=== PATIENT | female | born 1930 | race Caucasian/White ===

== ENCOUNTER → 2016-09-08 | Outpatient (CLI) | payer BC ==
[~2016-09-08] MED LIST: BIOTPOW17; CHOL100010 PO; CYAN10005 PO; DRV100 PO; ESTER C; FLV400 PO; IBUP600T44 PO; METO50TA16 PO; MGN PO; MULT-506 PO; OMEG10007 PO; PYRI100T4 PO; VITA400C15 PO; VITAMIN B COMPLEX
[2016-09-08 08:38] LABS: BLOOD UREA NITROGEN 26 mg/dl (7-18); CALCIUM 8.6 mg/dl (8.5-10.1); CARBON DIOXIDE 31 mmol/L (21-32); CHLORIDE 104 mmol/L (98-107); CHOLESTEROL 179 mg/dl (0-200); GLUCOSE 97 mg/dl (70-99); POTASSIUM 4.6 mmol/L (3.5-5.1); SODIUM 141 mmol/L (136-145); TRIGLYCERIDES 257 mg/dl (0-150); VERY LOW DENSITY LIPOPROT CALC 51 mg/dl
[2016-09-08 08:42] LABS: CHOLESTEROL/HDL RATIO 5.3; HDL CHOLESTEROL 34 mg/dl; LDL CHOLESTEROL CALCULATED 94 mg/dl
== END | disposition home or self-care (01) ==
LOC: C.LABFOXMH 07:45
PROVIDERS: ATTEND Internal Medicine
DX: I10 Essential (primary) hypertension (principal)

== ENCOUNTER → 2017-03-05 | Outpatient (CLI) | payer BC ==
[2017-03-05 08:30] LABS: BLOOD UREA NITROGEN 21 mg/dl (7-18); BUN/CREATININE RATIO 17.8 (10-20); CALCIUM 8.9 mg/dl (8.5-10.1); CARBON DIOXIDE 28 mmol/L (21-32); CHLORIDE 106 mmol/L (98-107); GLUCOSE 103 mg/dl (70-99); POTASSIUM 4.5 mmol/L (3.5-5.1); SODIUM 142 mmol/L (136-145)
== END | disposition home or self-care (01) ==
LOC: C.LABFOXMH 07:45
PROVIDERS: ATTEND Internal Medicine
DX: I10 Essential (primary) hypertension (principal)

== ENCOUNTER → 2017-05-18 | Outpatient (CLI) | payer BC ==
[2017-05-18 09:41] LABS: BLOOD UREA NITROGEN 25 mg/dl (7-18); BUN/CREATININE RATIO 25.4 (10-20); CARBON DIOXIDE 30 mmol/L (21-32); CHLORIDE 107 mmol/L (98-107); CREATININE 0.98 mg/dl (0.60-1.20); GLUCOSE 94 mg/dl (70-99); POTASSIUM 4.6 mmol/L (3.5-5.1); SODIUM 139 mmol/L (136-145)
== END ==
LOC: C.LABFOXMH 08:54
PROVIDERS: ATTEND Internal Medicine
DX: I10 Essential (primary) hypertension (principal)

== ENCOUNTER → 2017-06-04 | Outpatient (CLI) | payer BC ==
[2017-06-04 09:04] LABS: BLOOD UREA NITROGEN 20 mg/dl (7-18); CALCIUM 8.7 mg/dl (8.5-10.1); CARBON DIOXIDE 31 mmol/L (21-32); CHLORIDE 104 mmol/L (98-107); GLUCOSE 95 mg/dl (70-99); POTASSIUM 4.7 mmol/L (3.5-5.1); SODIUM 138 mmol/L (136-145)
== END | disposition home or self-care (01) ==
LOC: C.LABFOXMH 08:34
PROVIDERS: ATTEND Internal Medicine
DX: I10 Essential (primary) hypertension (principal); M81.0 Age-related osteoporosis without current pathological fracture

== ENCOUNTER → 2017-06-29 | Outpatient (CLI) | payer BC | END | disposition home or self-care (01) | LOC: C.MAMM 12:36 | PROVIDERS: ATTEND Internal Medicine | DX: N95.8 Other specified menopausal and perimenopausal disorders (principal) ==

== ENCOUNTER → 2017-07-10 | Outpatient (CLI) | payer BC ==
[2017-07-10 12:03] LABS: INFLUENZA B ANTIGEN Neg for Influ B (NEG)
== END | disposition home or self-care (01) ==
LOC: C.LABFOXMH 11:27
PROVIDERS: ATTEND Nurse Practitioner Family
DX: R05 Cough (principal)

== ENCOUNTER 2019-05-24 21:54 | Inpatient (IN) ==
[2019-05-24] MEDS ORDERED: SODIUM CHLORIDE 0.9% 1000ML 500 ML IV ONE (22:02)
[2019-05-24] MEDS ORDERED: dilTIAZem HCl 5 MG/ML 5 ML VIAL IV STA (22:06)
[2019-05-24 22:17] LABS: Basophils # (auto) 0.02 K/uL (0-0.2); Basophils % (auto) 0.2 %; Eosinophils # (auto) 0.13 K/uL (0-0.5); Eosinophils % (auto) 1.6 %; Hematocrit (blood only) 42.8 % (37-47); Hemoglobin 14.1 g/dL (12.0-16.0); Immature Granulocytes # (auto) 0.01 K/uL (0.00-0.02); Immature Granulocytes % (auto) 0.1 %; Lymphocytes # (auto) 2.44 K/uL (1.2-3.4); Lymphocytes % (auto) 30.2 %; Mean Corpuscular Hemoglobin 30.3 pg (25-34); Mean Corpuscular Hgb Conc 32.9 g/dL (32-36); Mean Corpuscular Volume 91.8 fL (80-100); Mean Platelet Volume 10.3 fL (7.4-10.4); Monocytes # (auto) 0.81 K/uL (0.11-0.59); Neutrophils # (auto) 4.68 K/uL (1.4-6.5); Neutrophils % (auto) 57.9 %; Platelet Count 200 K/uL (130-400); RDW Coefficient of Variation 13.7 % (11.5-14.5); RDW Standard Deviation 46.1 fL (36.4-46.3); Red Blood Count 4.66 M/uL (4.2-5.4); White Blood Count 8.09 K/uL (4.8-10.8)
--- NOTE | 2019-05-24 22:22 | XRay Report ---
XR chest 1V portable CLINICAL HISTORY: weakness COMPARISON STUDY: Chest radiograph July 02, 2018. FINDINGS: Lung volumes are normal. Minimal left basilar opacity favors atelectasis. There is no pneum othorax or pleural effusion. Borderline cardiomegaly is noted. Mediastinal contours are normal. There is no evidence for pulmonary edema. A calcified left lung granuloma is noted. Suspected calcified le ft hilar node is noted. Lumbar spine fusion hardware is partially imaged. IMPRESSION: No acute cardiopulmonary findings. Electronically signed by: Ronni Holder M.D. 05/24/2019 10:21 PM
--- NOTE | 2019-05-24 22:31 | Emergency Department Note ---
Entered by Emma Hernandez acting as a scribe for Tushar Benavidez DO History of Present Illness General Chief complaint: Arrhythmia/Palpitations Stated complaint: PALPITATIONS, DIZZINESS Time Seen by Provider: 05/24/19 21:54 History of Present Illness Provider complaint: palpitations Onset (ago): hour(s) 3 Pain Consistency: + other (episode) Quality: + other (palpitations) Relieved By: + medication (15 mg Cardizem) Associated symptoms: + denies other symptoms (swelling in legs, recent travel), + shortness of breath (3 times) and + other (palpitations started after eating dinner); no chest pain and no nausea/vomiting Treatments prior to arrival: other (15 mg Cardizem) The patient is an 89 year old male who presents to the ED with complaints of an episode of palpitations that started 3 hours ago. The patient states that this feeling started after she finished dinner at [facility]. The patient states that as she was walking home with these symptoms, she became short of breath 3 times. The patient states that she is feeling better after receiving 15 mg of Cardizem en route. The patient denies swelling in her legs, chest pain, nausea, vomiting and recent travel. Home Medications Home Medications Medication Instructions Recorded Confirmed Type aspirin [Aspir-Low] 81 mg PO DAILY 05/24/19 05/24/19 History biotin 0 mg PO DAILY 05/24/19 05/24/19 History cholecalciferol (vitamin D3) 1,000 unit PO TID 05/24/19 05/24/19 History [Vitamin D3] cyanocobalamin (vitamin B-12) 1,000 mcg PO DAILY 05/24/19 05/24/19 History [Vitamin B-12] folic acid 400 mcg PO DAILY 05/24/19 05/24/19 History magnesium 250 mg PO DAILY 05/24/19 05/24/19 History omega 2-gwh-ojr-fish oil [Fish Oil] 1 cap PO DAILY 05/24/19 05/24/19 History vitamin B complex 1 tab PO DAILY 05/24/19 05/24/19 History vitamin E 400 unit PO DAILY 05/24/19 05/24/19 History Allergies Allergy/AdvReac Type Severity Reaction Status Date / Time Penicillins Allergy Mild Unknown Verified 05/24/19 22:57 Past Med/Surg History Medical History (Updated 05/24/19 @ 23:40 by Emma Hernandez) Hypertension No significant medical problems (Inactive) Social History Preferred Language: Malawian Feels Safe at Home: Yes Smoking Status: Former smoker Review of Systems See HPI for pertinent positives & negatives. and A total of 10 systems reviewed and were otherwise negative Physical Exam Vital Signs Vital Signs - 24 hr 05/24/19 22:11 05/24/19 22:15 05/24/19 22:20 Temperature 36.8 C Temperature Source Oral Pulse Rate 108 H 117 H 92 H Pulse Rate from SpO2 Sensor 111 H 97 H Respiratory Rate 18 18 18 Blood Pressure 161/79 H 141/77 H 132/75 Blood Pressure Mean 106 99 85 Pulse Oximetry 94 94 90 Oxygen Delivery Method Room Air Sepsis Recent Fever Within 48 Hours No Sepsis New/Unexplained Change in Mental Status No Sepsis Action Taken by Nursing No Action Required Pulse Oximetry Post Tiitration 94 05/24/19 22:25 05/24/19 22:30 05/24/19 22:35 Temperature Temperature Source Pulse Rate 90 88 96 H Pulse Rate from SpO2 Sensor 95 H 89 86 Respiratory Rate 20 18 18 Blood Pressure 118/77 119/67 120/77 Blood Pressure Mean 101 90 90 Pulse Oximetry 91 93 90 Oxygen Delivery Method Sepsis Recent Fever Within 48 Hours Sepsis New/Unexplained Change in Mental Status Sepsis Action Taken by Nursing Pulse Oximetry Post Tiitration 05/24/19 22:41 05/24/19 23:00 Temperature Temperature Source Pulse Rate 84 98 H Pulse Rate from SpO2 Sensor 92 H 114 H Respiratory Rate 18 18 Blood Pressure 121/76 114/98 Blood Pressure Mean 91 102 Pulse Oximetry 93 94 Oxygen Delivery Method Sepsis Recent Fever Within 48 Hours Sepsis New/Unexplained Change in Mental Status Sepsis Action Taken by Nursing Pulse Oximetry Post Tiitration GENERAL: Patient is awake alert in no acute distress patient is resting comfortably and showing no signs of anxiety EYES: The conjunctivae are clear. The pupils are round and reactive. EARS, NOSE, MOUTH AND THROAT: The nose is without any evidence of any deformity. Mucous membranes are moist. Tongue is midline. NECK: The neck is nontender and supple. RESPIRATORY: Normal respiratory effort is noted there is no evidence of wheezing rhonchi or rales CARDIOVASCULAR: Irregular rhythm was noted to auscultation. There is no definite murmur. GASTROINTESTINAL: The abdomen is soft. Abdomen is nontender. MUSCULOSKELETAL/EXTREMITIES: There is no evidence of gross deformity full range of motion is noted in the hips and shoulders. SKIN: There is no obvious evidence of any rash. Trace pedal edema was noted bilaterally. NEUROLOGIC: Patient is awake alert and oriented x3. Course Course 2157: Past medical records reviewed. The patient was evaluated in room C04. A complete history and physical exam was performed. 2257: I discussed the patient's case with Dr. Lopez [facility] Hospitalist. She will evaluate the patient for further management. 2301: I updated the patient and her son on the plan for admission. They verbally agree and understand. Consultations Consultation #1: I discussed the patient's case with Dr. Lopez [facility] Hospitalist. She will evaluate the patient for further management. Time: 22:58 Administered Medications Discontinued Medications Diltiazem HCl (Cardizem) 10 mg IV NOW STA Stop: 05/24/19 22:07 Last Admin: 05/24/19 22:13 Dose: 10 mg Documented by: [id number] Cosigned by: [id number] Sodium Chloride (Nss 1000ml) 500 mls @ 999 mls/hr IV .Q31M ONE Stop: 05/24/19 22:32 Last Admin: 05/24/19 22:09 Dose: 500 mls/hr Documented by: [id number] Medical Decision Making Differential Diagnosis Differential diagnosis: Etiologies such as infections, reactive airway disease, COPD, pneumonia, pleural effusion, pulmonary edema, ARDS, pneumothorax, CHF, cardiac ischemia, cardiac tamponade, dysrhythmia, anemia, pulmonary embolism, musculoskeletal, gastrointestinal process, as well as others were entertained. Medical Records Attestation: I reviewed the patient's medical records. Home Medications Current Medication List: was personally reviewed by me Laboratory Data Attestation: I reviewed the patient's lab results. Result diagrams: 05/24/19 22:09 05/24/19 22:09 Lab Results 05/24/19 05/24/19 05/24/19 Range/Units 22:09 22:09 22:09 WBC 8.09 (4.8-10.8) K/uL RBC 4.66 (4.2-5.4) M/uL Hgb 14.1 (12.0-16.0) g/dL Hct 42.8 (37-47) % MCV 91.8 (80-100) fL MCH 30.3 (25-34) pg MCHC 32.9 (32-36) g/dL RDW Std Deviation 46.1 (36.4-46.3) fL RDW Coeff of Yousuf 13.7 (11.5-14.5) % Plt Count 200 (130-400) K/uL MPV 10.3 (7.4-10.4) fL Immature Gran % (Auto) 0.1 % Neut % (Auto) 57.9 % Lymph % (Auto) 30.2 % Burt % (Auto) 10.0 % Eos % (Auto) 1.6 % Baso % (Auto) 0.2 % Immature Gran # (Auto) 0.01 (0.00-0.02) K/uL Neut # (Auto) 4.68 (1.4-6.5) K/uL Lymph # (Auto) 2.44 (1.2-3.4) K/uL Burt # (Auto) 0.81 H (0.11-0.59) K/uL Eos # (Auto) 0.13 (0-0.5) K/uL Baso # (Auto) 0.02 (0-0.2) K/uL PT 10.8 (9.0-12.0) Seconds INR 1.1 (0.9-1.1) APTT 23.0 (21.0-31.0) Seconds PTT Ratio 0.8 Sodium 140 (136-145) mmol/L Potassium 4.3 (3.5-5.1) mmol/L Chloride 108 H (98-107) mmol/L Carbon Dioxide 27 (21-32) mmol/L Anion Gap 5.0 (3-11) BUN 21 H (7-18) mg/dl Creatinine 1.14 (0.6-1.2) mg/dl Est Cr Clr Drug Dosing 28.8 ml/min Est GFR ( Amer) 49.7 Est GFR (Non-Af Amer) 42.9 BUN/Creatinine Ratio 18.4 (10-20) Glucose 124 H (70-99) mg/dl Calcium 8.9 (8.5-10.1) mg/dl Magnesium 2.1 (1.8-2.4) mg/dl Total Bilirubin 0.3 (0.2-1) mg/dl AST 17 (15-37) U/L ALT 17 (12-78) U/L Alkaline Phosphatase 57 (45-117) U/L Troponin I < 0.015 (0-0.045) ng/ml Total Protein 7.9 (6.4-8.2) gm/dl Albumin 3.6 (3.4-5.0) gm/dl Globulin 4.3 H (2.5-4.0) gm/dl Albumin/Globulin Ratio 0.8 L (0.9-2) TSH 1.250 (0.300-4.500) uIu/ml Urine Color Urine Appearance (Clear) Urine pH (4.5-7.5) Ur Specific [place] (1.000-1.030) Urine Protein (Negative) Urine Glucose (UA) (Negative) Urine Ketones (Negative) Urine Blood (Negative) Urine Nitrite (Negative) Urine Bilirubin (Negative) Urine Urobilinogen (Negative) Ur Leukocyte Esterase (Negative) Urine WBC (Auto) (0-5) /hpf Urine RBC (Auto) (0-4) /hpf U Hyaline Cast (Auto) (0-5) /lpf U Epithel Cells (Auto) (0-5) /lpf Urine Bacteria (Auto) (Negative) 05/24/19 Range/Units 22:30 WBC (4.8-10.8) K/uL RBC (4.2-5.4) M/uL Hgb (12.0-16.0) g/dL Hct (37-47) % MCV (80-100) fL MCH (25-34) pg MCHC (32-36) g/dL RDW Std Deviation (36.4-46.3) fL RDW Coeff of Yousuf (11.5-14.5) % Plt Count (130-400) K/uL MPV (7.4-10.4) fL Immature Gran % (Auto) % Neut % (Auto) % Lymph % (Auto) % Burt % (Auto) % Eos % (Auto) % Baso % (Auto) % Immature Gran # (Auto) (0.00-0.02) K/uL Neut # (Auto) (1.4-6.5) K/uL Lymph # (Auto) (1.2-3.4) K/uL Burt # (Auto) (0.11-0.59) K/uL Eos # (Auto) (0-0.5) K/uL Baso # (Auto) (0-0.2) K/uL PT (9.0-12.0) Seconds INR (0.9-1.1) APTT (21.0-31.0) Seconds PTT Ratio Sodium (136-145) mmol/L Potassium (3.5-5.1) mmol/L Chloride (98-107) mmol/L Carbon Dioxide (21-32) mmol/L Anion Gap (3-11) BUN (7-18) mg/dl Creatinine (0.6-1.2) mg/dl Est Cr Clr Drug Dosing ml/min Est GFR ( Amer) Est GFR (Non-Af Amer) BUN/Creatinine Ratio (10-20) Glucose (70-99) mg/dl Calcium (8.5-10.1) mg/dl Magnesium (1.8-2.4) mg/dl Total Bilirubin (0.2-1) mg/dl AST (15-37) U/L ALT (12-78) U/L Alkaline Phosphatase (45-117) U/L Troponin I (0-0.045) ng/ml Total Protein (6.4-8.2) gm/dl Albumin (3.4-5.0) gm/dl Globulin (2.5-4.0) gm/dl Albumin/Globulin Ratio (0.9-2) TSH (0.300-4.500) uIu/ml Urine Color Yellow Urine Appearance Clear (Clear) Urine pH 6.5 (4.5-7.5) Ur Specific [place] 1.008 (1.000-1.030) Urine Protein Negative (Negative) Urine Glucose (UA) Negative (Negative) Urine Ketones Negative (Negative) Urine Blood Negative (Negative) Urine Nitrite Negative (Negative) Urine Bilirubin Negative (Negative) Urine Urobilinogen Negative (Negative) Ur Leukocyte Esterase Trace H (Negative) Urine WBC (Auto) 1-5 (0-5) /hpf Urine RBC (Auto) 0-4 (0-4) /hpf U Hyaline Cast (Auto) 0 (0-5) /lpf U Epithel Cells (Auto) 0-5 (0-5) /lpf Urine Bacteria (Auto) Negative (Negative) Imaging Data Radiologist's Impression: Radiology results as stated below per my review and the radiologist's interpretation: XR chest 1V portable CLINICAL HISTORY: weakness COMPARISON STUDY: Chest radiograph July 02, 2018. FINDINGS: Lung volumes are normal. Minimal left basilar opacity favors atelectasis. There is no pneumothorax or pleural effusion. Borderline cardiomegaly is noted. Mediastinal contours are normal. There is no evidence for pulmonary edema. A calcified left lung granuloma is noted. Suspected calcified left hilar node is noted. Lumbar spine fusion hardware is partially imaged. IMPRESSION: No acute cardiopulmonary findings. Electronically signed by: Ronni Holder M.D. 05/24/2019 10:21 PM ECG Data Attestation: I personally reviewed and interpreted this ECG as follows: Indication: + chest pain Rate (beats per minute): 105 Rhythm: + atrial fibrillation (RVR) ECG Intervals/blocks: + Left bundle branch block (pattern noted) ECG Findings: no PVCs Comparison ECG Date: from (09/22/2008) Change: the following changes noted (Afib replaced sinus rhythm) Blood Pressure Blood Pressure Findings: Normal blood pressure Blood Pressure Disposition: did not require urgent referral MDM Narrative The patient is an 89-year-old female who presented to the emergency department for an evaluation of palpitations. The patient has a history of atrial fibrillation but this was approximately 10 years ago and currently the patient is not taking medications for rate control or blood thinners. The patient was treated with IV Cardizem prior to arrival. She was further treated with IV Cardizem in the emergency department. She was feeling much better on subsequent reevaluation but continues to be in atrial fibrillation. I discussed patient's laboratory and radiographic studies with her. I also discussed her case with [facility] on-call [facility] hospitalist. They have agreed to evaluate the patient in the emergency department for further management and disposition. I discussed patient's condition with her son, Alessandro. He is aware the patient's condition at this time. Impression & Plan Atrial fibrillation with RVR, Palpitations, Dyspnea on exertion Discharge Plan Visit Data Chief Complaint: Arrhythmia/Palpitations Stated Complaint: PALPITATIONS, DIZZINESS ED Provider: Tushar Benavidez Discharge Problem: Atrial fibrillation with RVR, Palpitations, Dyspnea on exertion Patient Disposition: Being Evaluated by Hospitalist Forms Stand Alone Forms: My [facility] Prescriptions Prescriptions: No Action aspirin [Aspir-Low] 81 mg Tablet,Delayed Release (Dr/Ec) 81 mg PO DAILY RF: 0 cyanocobalamin (vitamin B-12) [Vitamin B-12] 1,000 mcg Tablet 1,000 mcg PO DAILY RF: 0 folic acid 400 mcg Tablet 400 mcg PO DAILY RF: 0 magnesium 250 mg Tablet 250 mg PO DAILY RF: 0 cholecalciferol (vitamin D3) [Vitamin D3] 1,000 unit Tablet,Chewable 1,000 unit PO TID RF: 0 omega 8-qqn-xaw-fish oil [Fish Oil] 1,000 mg (120 mg-180 mg) Capsule 1 cap PO DAILY RF: 0 biotin 1 mg Capsule 0 mg PO DAILY RF: 0 vitamin B complex Tablet 1 tab PO DAILY RF: 0 vitamin E 400 unit Capsule 400 unit PO DAILY RF: 0 Referrals Referrals: Oskar Epperson [Primary Care Provider] - The scribe's documentation has been prepared under my direction and personally reviewed by me in its entirety. I confirm that the note above accurately reflects all work, treatment, procedures, and medical decision making performed by me.
[2019-05-24 22:33] LABS: INR 1.1 (0.9-1.1); Partial Thromboplastin Ratio 0.8; Prothrombin Time 10.8 Seconds (9.0-12.0)
[2019-05-24 22:57] LABS: Alanine Aminotransferase 17 U/L (12-78); Albumin Globulin Ratio 0.8 (0.9-2); Albumin Level 3.6 gm/dl (3.4-5.0); Alkaline Phosphatase 57 U/L (45-117); BUN Creatinine Ratio 18.4 (10-20); Bilirubin,Total 0.3 mg/dl (0.2-1); Blood Urea Nitrogen 21 mg/dl (7-18); Calcium 8.9 mg/dl (8.5-10.1); Carbon Dioxide 27 mmol/L (21-32); Chloride 108 mmol/L (98-107); Creatinine Clr Calc Pharmacy 28.8 ml/min; Est GFR (African American) 49.7; Est GFR (Non-African American) 42.9; Globulin 4.3 gm/dl (2.5-4.0); Glucose 124 mg/dl (70-99); Total Protein 7.9 gm/dl (6.4-8.2); Troponin I < 0.015 ng/ml (0-0.045)
[2019-05-24 23:05] LABS: Potassium 4.3 mmol/L (3.5-5.1); Sodium 140 mmol/L (136-145)
[2019-05-24 23:12] LABS: Aspartate Aminotransferase 17 U/L (15-37); Magnesium 2.1 mg/dl (1.8-2.4)
[2019-05-24 23:12] LABS: Appearance Urine Clear (Clear); Bacteria Urine Automated Negative (Negative); Bilirubin Urine Negative (Negative); Blood Urine Negative (Negative); Cast Urine Automated 0 /lpf (0-5); Color Urine Yellow; Epithelial Cell Urine Auto 0-5 /lpf (0-5); Glucose Urine UA Negative (Negative); Ketones Urine Negative (Negative); Leukocyte Esterase Urine Trace (Negative); Nitrite Urine Negative (Negative); Protein Urine Negative (Negative); RBC Urine Automated 0-4 /hpf (0-4); Specific Gravity Urine 1.008 (1.000-1.030); Urobilinogen Urine Negative (Negative); pH Urine 6.5 (4.5-7.5)
--- NOTE | 2019-05-25 00:03 | History & Physical Report ---
Date of Service May 25, 2019 Assessment & Plan (1) Atrial fibrillation with RVR: Ms. Coreas is a delightful 89-year-old female with a past medical history of atrial fibrillation and hypertension who presents to [facility] from [facility] due to feeling lightheaded, and short of breath earlier today. ED course: She received 10 mg of IV Cardizem en route to the hospital, and a further 10 mg of IV Cardizem in the ER. She also received a 500 mL normal saline bolus Atrial Fibrillation with RVR -Admit to telemetry -Patient with a remote history of atrial fibrillation, however is not on any rate or rhythm controlling agents or anticoagulation -Symptoms and rate improved in the ER after 10 mg IV doses of Cardizem x 2 -will start 12.5 mg of p.o. metoprolol tartrate twice daily given patient tolerated metoprolol well in the past. Can titrate up if necessary -Echo ordered -No clear trigger for atrial fibrillation - electrolytes optimized, potassium 4.3 and magnesium 2.1, no symptoms or signs of infection, patient euvolemic -Troponin negative x1 -Chadsvasc score of 3 without including hypertension (see below) - patient has a 3.2% risk of stroke per year -The risk of stroke with atrial fibrillation was discussed with the patient, however she stated she would rather not take blood thinners, but instead drink green tea which has blood thinning properties Hypertension -Patient reports a history of this, however does not appear to be on any medications for this at home Code status: FULL DVT Prophylaxis: SCDs, patient ambulatory Disposition: admit to telemetry (2) Palpitations: (3) Dyspnea on exertion: (4) Hypertension: History of Present Illness Chief Complaint: Lightheadedness, SOB Primary Care Provider: [facility] Ms. Coreas is a delightful 89-year-old female with a past medical history of atrial fibrillation and hypertension who presents to [facility] from [facility] due to feeling lightheaded, and short of breath earlier today. Ms. Coreas states that she was walking from her dining farmer to her [place], when she suddenly felt lightheaded. She states that she is normally able to walk this entire route without stopping, however today she had to stop 3 times to catch her breath. She also endorsed chest tightness. She checked her pulse and blood pressure at this time, and found her pulse to be 105 and systolic blood pressure to be 112. She states that she is usually above 140 systolic, but this was a change for her. She reports that she was in her usual state of health today, and in fact was learning how to play pool earlier today. 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 With regards to her prior history of atrial fibrillation, she states that she was on metoprolol for this. She was taken off her medication several years ago, and did not have any episodes of A. fib since then. She states that she has never been on blood thinners, and prefers not to be. Allergies Allergy/AdvReac Type Severity Reaction Status Date / Time Penicillins Allergy Mild Unknown Verified 05/24/19 22:57 Home Medications Home Medications Medication Instructions Recorded Confirmed Type aspirin [Aspir-Low] 81 mg PO DAILY 05/24/19 05/24/19 History biotin 0 mg PO DAILY 05/24/19 05/24/19 History cholecalciferol (vitamin D3) 1,000 unit PO TID 05/24/19 05/24/19 History [Vitamin D3] cyanocobalamin (vitamin B-12) 1,000 mcg PO DAILY 05/24/19 05/24/19 History [Vitamin B-12] folic acid 400 mcg PO DAILY 05/24/19 05/24/19 History magnesium 250 mg PO DAILY 05/24/19 05/24/19 History omega 5-gvj-pln-fish oil [Fish Oil] 1 cap PO DAILY 05/24/19 05/24/19 History vitamin B complex 1 tab PO DAILY 05/24/19 05/24/19 History vitamin E 400 unit PO DAILY 05/24/19 05/24/19 History Past Med/Surg History Medical History (Updated 05/24/19 @ 23:40 by Emma Hernandez) Hypertension No significant medical problems (Inactive) Social History Preferred Language: Lithuanian Feels Safe at Home: Yes Smoking Status: Former smoker Review of Systems Constitutional: no fever, no chills, no fatigue and no anorexia Respiratory: no cough, no dyspnea and no wheezing Cardiovascular: + chest pain (tightness) and + lightheadedness; no syncope, no edema and no calf pain Gastrointestinal: no abdominal pain, no nausea, no vomiting and no change in bowel habits Genitourinary: + urinary incontinence; no dysuria and no difficulty urinating Integumentary: no rash Physical Exam Constitutional: WD/WN, vitals as above + well hydrated; no acute distress Eyes: PERRL, conjunctivae normal, anicteric sclerae ENMT: external ear and nose normal, oropharynx normal Respiratory: normal respiratory effort, lungs clear to auscultation Cardiovascular: Rate/Rhythm: regular rate; + abnormal rhythm (irregularly irregular) Heart Sounds: no murmur Vessels: posterior tibial pulses present and dorsalis pedis pulses present Extremities: no calf tenderness and no pedal edema Gastrointestinal (Abdomen): normal bowel sounds, soft, nontender, no hepatosplenomegaly Musculoskeletal: no cyanosis or clubbing, extremities motor strength 5/5 Skin: no rashes, warm and dry Psychiatric: A+Ox3, euthymic affect Results & Data Vital Signs (Past 12 Hours) Vital Signs Temp Pulse Resp BP Pulse Ox 05/24/19 23:00 98 H 18 114/98 94 05/24/19 22:41 84 18 121/76 93 05/24/19 22:35 96 H 18 120/77 90 05/24/19 22:30 88 18 119/67 93 05/24/19 22:25 90 20 118/77 91 05/24/19 22:20 92 H 18 132/75 90 05/24/19 22:15 117 H 18 141/77 H 94 05/24/19 22:11 36.8 C 108 H 18 161/79 H 94 Code Status & VTE Plan VTE Prophylaxis Plan VTE Prophylaxis will be ordered: Yes Supervising Physician Co-Signing Physician Notes Patient seen and examined, chart reviewed, case discussed with Dr. Alberts and I agree with her assessment and plan as documented above. Briefly, patient is a buster 89yo C female with remote history of atrial fibrillation presenting in AF with RVR. Patient developed some mild chest tightness and DO earlier today, came to the ER and found to be in AF. Her rate responded nicely to Cardizem. Presently feels much improved. No complaints On exam she is afebrile, HD stabe [id number], irregularly irregular Lungs - CTA, no rales/rhonchi/wheezes Abd - +BS, soft, NT/ND Ext - no edema Labs and images reviewed Assessment/Plan: 89yo C female with AF -Admit with telemetry -Check echo -Metoprolol 12.5mg po BID -Patient should be considered for anticoagulation due to stroke risk (Age, gender, h/o HTN). She wishes to hold off on this for now and to try using green tea. She is aware of the risk of stroke -Remainder of plan as above Resident Activity Tracking Resident Involvement: Resident Care Provided Care Provided: Adult Hospital Medicine
[2019-05-25] MEDS ORDERED: POLYETHYLENE (MIRALAX) 17 GM PACK PO PRN (00:57)
[2019-05-25] MEDS ORDERED: ACETAMINOPHEN 325 MG TAB PO PRN (00:57)
--- NOTE | 2019-05-25 01:38 | Billing Data ---
Date of Service May 25, 2019 Coding Level of Care Code 42826 Initial Inpt Care Lvl 2
[2019-05-25] MEDS: METOPROLOL TARTRATE 25 MG TAB PO SCH ×2 (01:43→08:37)
[2019-05-25] MEDS ORDERED: ASPIRIN 81 MG ECTAB PO SCH (09:00)
--- NOTE | 2019-05-25 12:12 | Discharge Summary ---
Date of Service May 25, 2019 Admission HPI Per Admitting Provider Ms. Coreas is a delightful 89-year-old female with a past medical history of atrial fibrillation and hypertension who presents to [facility] from [facility] due to feeling lightheaded, and short of breath earlier today. Ms. Coreas states that she was walking from her dining [place] to her [place], when she suddenly felt lightheaded. She states that she is normally able to walk this entire route without stopping, however today she had to stop 3 times to catch her breath. She also endorsed chest tightness. She checked her pulse and blood pressure at this time, and found her pulse to be 105 and sy stolic blood pressure to be 112. She states that she is usually above 140 systolic, but this was a change for her. She reports that she was in her usual state of health today, and in fact was learning how to play pool earlier today. She denies a prior history of SC, CVA, and states she does not follow with a therapist radiation. With regards to her prior history of atrial fibrillation, she states that she was on metoprolol for this. She was taken off her medication several years ago, and did not have any episodes of A. fib since then. She states that she has never been on blood thinners, and prefers not to be. Admission Exam Per Admitting Provider Constitutional: WD/WN, vitals as above + well hydrated; no acute distress Eyes: PERRL, conjunctivae normal, anicteric sclerae ENMT: external ear and nose normal, oropharynx normal Respiratory: normal respiratory effort, lungs clear to auscultation Cardiovascular: Rate/Rhythm: regular rate; + abnormal rhythm (irregularly irregular) Heart Sounds: no murmur Vessels: posterior tibial pulses present and dorsalis pedis pulses present Extremities: no calf tenderness and no pedal edema Gastrointestinal (Abdomen): normal bowel sounds, soft, nontender, no hepatosplenomegaly Musculoskeletal: no cyanosis or clubbing, extremities motor strength 5/5 Skin: no rashes, warm and dry Psychiatric: A+Ox3, euthymic affect Principal Diagnosis Afib Discharge Exam General: A&Ox3. NAD. Cooperative. HEENT: Atraumatic, normocephalic. Pulm: CTAB A&P. -wheezes, -rales, -rhonchi. Symmetrical chest rise. No increase work of breathing. No respiratory distress. Cardiac: RRR, -mrg. Radial pulses intact and symmetrical. Abdominal: Nontender, nondistended, soft. BS present. Discharge Data Allergies Allergy/AdvReac Type Severity Reaction Status Date / Time Penicillins Allergy Mild Unknown Verified 05/24/19 22:57 Consultations 05/24/19 23:03 ED Decision to Admit Stat 05/25/19 00:57 Consult Case Management - Discharge Planning Routine Hospital Course (1) Atrial fibrillation with RVR: Dodie is an 89-year-old female with a distant history of atrial fibrillation previously on beta-rosie medication a decade ago who presented with an acute episode of shortness of breath and chest tightness. Atrial fibrillation Dodie was admitted from [facility] after she developed lightheadedness, shortness of breath, and a vague feeling of palpitations/chest tightness. On admission her normal blood pressure of approximately 140 systolic was reduced to 105, and she was tachycardic. EKG showed atrial fibrillation. She has a history of atrial fibrillation for which she was previously on metoprolol, but has not been on any beta-blockers or anticoagulation in over 10 years and has not had any problems with atrial fibrillation during that time. She responded well and her heart rate and blood pressure normalized with 210 mg doses of Cardizem. She started on metoprolol tartrate 12.5 mg twice daily with no recurrence of her symptoms, and was discharged to further titration to follow-up with her primary care provider. No clear trigger for her atrial fibrillation was identified, she had no electrolyte derangements and no signs of fluid overload or respiratory illness. Her symptoms had improved at time of discharge. Her [id number] score was 3 not including hypertension, this was discussed with her extensively. The risk of stroke, blood clots, and pulmonary embolism and A. fib was reviewed and she was told that she was at overall high risk for these events. Blood thinners including warfarin were discussed with her, she expressed that she did not want to start a blood thinning medication. She reports that she has read some literature about blood thinning effects of green tea, and would prefer to continue drinking several cups of green tea daily. It was discussed that while there is some literature which suggests a blood thinning effect of green tea, there is not any peer-reviewed or robustly reviewed medical literature to support the use of green tea as an adequate anticoagulant, or that it is been shown to effectively reduce the rates of PE/clot/stroke in A. fib patients. She expresses understanding of this, and acknowledged that this practice may not reduce her risk of these events. Patient preferred to defer pharmacologic anticoagulation at this time. She was educated on the risk of strokes and due to clot formation from atrial fibrillation. She was encouraged to revisit this discussion with her outpatient primary care provider and to contact them or call 911 for evaluation in the emergency department should any signs or symptoms of PE/stroke occur. Hypertension Patient reports a past medical history of hypertension previously on metoprolol a decade ago, with no antihypertensive medications in the last 10 years. She reports her blood pressure is normally in the high 130s/low 140s, but that it was acutely in the 110s on admission. She was not started on any antihypertensive medication, but was discharged to follow-up care with her primary care provider. She received SCDs and ambulation for DVT prophylaxis while admitted. (2) Palpitations: (3) Dyspnea on exertion: (4) Hypertension: Total Time Total Time Spent Total Time Spent (In Minutes): See Attending Documentation Discharge Plan Discharge Items Patient Disposition: Personal Skilled Nursing Reason For Visit: ATRIAL FIBRILLATION Discharge Diagnosis: Atrial fibrillation Activity: Resume your previous activity Non-emergency contact: Primary Care Provider Call non-emergency contact if: you have any medication questions, your symptoms worsen, your pain is not controlled, your pain is worsening, your pain is concerning for you and you have a fever Follow-up/Referrals: Oskar Epperson [Primary Care Provider] - Diet: Regular Addtl Attending Provider Instructions: You are seen in the hospital for shortness of breath, and found to have atrial fibrillation on admission. Your atrial fibrillation and rapid heart rate improved with metoprolol, a heart and blood pressure medication. You have been started on medications as below. Follow-up appointments with your primary care provider are being arranged as below. You have been started on a heart and blood pressure medicine, metoprolol tartrate. Please take metoprolol tartrate 12.5 mg by mouth twice daily. Your primary care physician will help you adjust this further if needed. If you develop any lightheadedness, shortness of breath, dizziness, passing out or nearly passing out, chest pain, chest pressure, dizziness while standing, decreased exercise tolerance, or other new or concerning symptoms please contact your primary care provider regarding this medication, or call 911 for transport to the ED if you are very concerned. Given your history of A. fib it was recommended that you start a blood thinning medication reduce the risk of blood clots, stroke, and pulmonary emboli. This was discussed at length, and you expressed understanding of the risks and benefits of oral anticoagulation. You expressed a preference for treatment with green tea, and expressed understanding that while some information has shown that green tea may have a blood thinning effect there is no peer reviewed or routine medical data to show that it produces a therapeutic level of anticoagulation, or that it is effective in reducing stroke/PE/clot risk in A. fib patients. You are encouraged to continue discussion over the risks/benefits of anticoagulation versus no pharmacologic anticoagulation with your primary care provider on discharge. A follow-up appointment is being scheduled for you with your [facility] primary care physician. You should have an appointment within 1 week. If you do not hear about an appointment within 48 hours, please call their office at to request an appointment. If you develop any recurrent, new, or worsening symptoms including lightheadedness, shortness of breath, dizziness, passing out or nearly passing out, chest pain, chest pressure, dizziness while standing, decreased exercise tolerance, or other new or concerning symptoms please contact your primary care provider regarding this medication, or call 911 for transport to the ED if you are very concerned. Pending Studies at Discharge: No Stand-Alone Forms: My [facility], Smoking Cessation Skilled Items Patient informed of condition?: Yes DNR: No Discharge Level of Care: Other Communicable Disease: No Discharge Prognosis: Stable Lines: None Urinary Catheter: No Medications and DC Order Prescriptions: New metoprolol tartrate 25 mg tablet 12.5 mg PO BID 30 Days Qty: 30 RF: 0 Continued aspirin [Aspir-Low] 81 mg Tablet,Delayed Release (Dr/Ec) 81 mg PO DAILY RF: 0 cyanocobalamin (vitamin B-12) [Vitamin B-12] 1,000 mcg Tablet 1,000 mcg PO DAILY RF: 0 folic acid 400 mcg Tablet 400 mcg PO DAILY RF: 0 magnesium 250 mg Tablet 250 mg PO DAILY RF: 0 cholecalciferol (vitamin D3) [Vitamin D3] 1,000 unit Tablet,Chewable 1,000 unit PO TID RF: 0 omega [id number]-fish oil [Fish Oil] 1,000 mg (120 mg-180 mg) Capsule 1 cap PO DAILY RF: 0 biotin 1 mg Capsule 0 mg PO DAILY RF: 0 vitamin B complex Tablet 1 tab PO DAILY RF: 0 vitamin E 400 unit Capsule 400 unit PO DAILY RF: 0 Discharge Orders: Discharge Order (Routine); Ordered 05/25/19 Ordered By: Kalyan Diop Admission Data Admit Date/Time: 05/25/19 00:01 Attending Provider: Aracelis Love Admit Provider: Viviane Alberts Primary Care Provider: Oskar Epperson Other Providers: Bridgett Edwards Other Interventions: Discharge Summary Assessment (RN) Last Done: 05/25/19 14:25 DC Date/Time DO NOT enter until pt leaves facility: 05/25/19 15:04 Supervising Physician Co-Signing Physician Notes Resident Physician Supervision Note: I independently interviewed and examined the patient and verified the perez history and physical, reviewed labs and image studies, discussed the case with the resident Dr. Diop and agree with the findings and care plan. Resident Activity Tracking Resident Involvement: Resident Care Provided Care Provided: Adult Hospital Medicine
[2019-05-25] MEDS ORDERED: METOPROLOL TARTRATE 25 MG TAB PO ONE (13:15)
[2019-05-25] MEDS ORDERED: METOPROLOL TARTRATE 25 MG TAB PO SCH (21:00)
== END 2019-05-25 15:04 | disposition home or self-care (01) | DRG 310 ==
LOC: ED 21:54 → 2S 05-25 00:01 → SUATTDRO 05-25 00:01 → 2S 05-25 00:24